=== PATIENT | male | born 1980 | race Asian ===

== ENCOUNTER → 2016-09-15 | Outpatient (CLI) | payer OTHER ==
[~2016-09-15] VITALS: Ht 174 cm; Wt 86.2 kg
[2016-09-15 14:10] VITALS: BP 134/82; PULSE 85; Ht 174 cm; Wt 86.2 kg
== END | disposition home or self-care (01) ==
LOC: C.NEUR 13:40
PROVIDERS: ATTEND Internal Medicine Pulmonary Disease
DX: G47.33 Obstructive sleep apnea (adult) (pediatric) (principal)